=== PATIENT | male | born 1980 | race Two or more races ===

== ENCOUNTER 2018-11-21 17:44 | Emergency (ER) | payer BC, OTHER ==
[2018-11-21] MEDS ORDERED: Proparacaine 0.5% Ophth Soln 15 ML Bottle EYERT ONE (18:02)
[2018-11-21] MEDS ORDERED: Tetracaine HCl/PF 0.5% 4 ML Bottle ONE (18:03)
[2018-11-21] MEDS ORDERED: Tetracaine HCl/PF 0.5% 4 ML Bottle EYERT ONE (18:04)
--- NOTE | 2018-11-21 18:15 | EDM.PDOC ---
ED HPI GENERAL MEDICAL PROBLEM - General Chief Complaint: Eye Problems Stated Complaint: RIGHT EYE PAIN Time Seen by Provider: 11/21/18 17:57 - History of Present Illness INITIAL COMMENTS - FREE TEXT/NARRATIVE: HISTORY AND PHYSICAL: History of present illness: Patient is a 38-year-old male presents with a concern of foreign body to his right eye status post 3 days. He denies other concern Review of systems: As per history of present illness and below otherwise all systems reviewed and negative. Past medical history: As per history of present illness and as reviewed below otherwise noncontributory. Surgical history: As per history of present illness and as reviewed below otherwise noncontributory. Social history: No reported history of drug or alcohol abuse. Family history: As per history of present illness and as reviewed below otherwise noncontributory. Physical exam: HEENT: Atraumatic, normocephalic, foreign body noted approximately 1 mm centrally in the right eye anterior chamber scleral some slight conjunctival injection lid eversion was negative foreign body pupils reactive, negative for conjunctival pallor or scleral icterus, mucous membranes moist, throat clear, neck supple, nontender, trachea midline. Lungs: Clear to auscultation, breath sounds equal bilaterally, chest nontender. Heart: S1S2, regular, negative for clicks, rubs, or JVD. Abdomen: Soft, nondistended, nontender. Negative for masses or hepatosplenomegaly. Negative for costovertebral tenderness. Pelvis: Stable nontender. Genitourinary: Deferred. Rectal: Deferred. Extremities: Atraumatic, negative for cords or calf pain. Neurovascular unremarkable. Neuro: Awake, alert, oriented. Cranial nerves II through XII unremarkable. Cerebellum unremarkable. Motor and sensory unremarkable throughout. Exam nonfocal. Diagnostics: None Therapeutics: Tetracaine ophthalmic drops Impression: #1 corneal foreign body right eye 3 days status post Definitive disposition and diagnosis as appropriate pending reevaluation and review of above. Right Eye Pain Score (Numeric/FACES): 8 - Related Data Allergies Allergy/AdvReac Type Severity Reaction Status Date / Time No Known Allergies Allergy Verified 11/21/18 17:56 Home Meds: Home Meds . [No Known Home Meds] 11/21/18 [History] Past Medical History Dermatologic History: Reports: Other (See Below) Other Dermatologic History: Tumor on left leg removed - Infectious Disease History Infectious Disease History: Reports: Chicken Pox - Past Surgical History Respiratory Surgical History: Reports: Other (See Below) Other Respiratory Surgeries/Procedures: Bilateral chest tube and surgical abrasions to lungs. Musculoskeletal Surgical History: Reports: Shoulder Surgery, Other (See Below) Other Musculoskeletal Surgeries/Procedures:: Right foot, right arm Social & Family History - Family History Family Medical History: Noncontributory - Tobacco Use Smoking Status *Q: Current Some Day Smoker Years of Tobacco use: 10 Packs/Tins Daily: 0.1 - Recreational Drug Use Recreational Drug Use: No ED ROS GENERAL - Review of Systems Review Of Systems: ROS reveals no pertinent complaints other than HPI. ED EXAM GENERAL W FULL EYE - Physical Exam Exam: See Below (See dictation) Course - Vital Signs Last Recorded V/S: Last Vital Signs Temp 36.6 C 11/21/18 18:04 Pulse 92 11/21/18 18:04 Resp 16 11/21/18 18:04 BP 131/77 11/21/18 18:04 Pulse Ox 95 11/21/18 18:04 - Orders/Labs/Meds Meds: Medications Discontinued Medications Generic Name Dose Route Start Last Admin Trade Name Shalini PRN Reason Stop Dose Admin Proparacaine HCl 1 ml 11/21/18 18:02 Proparacaine 0.5% Ophth Soln EYERT 11/21/18 18:03 ONETIME ONE Tetracaine HCl 1 ml 11/21/18 18:04 Tetracaine 0.5% Steri-Unit Kaci EYERT 11/21/18 18:05 ASDIRECTED ONE Tetracaine HCl Confirm 11/21/18 18:03 Tetracaine 0.5% Steri-Unit Kaci Administered 11/21/18 18:04 Dose 4 ml .ROUTE .STK-MED ONE Departure - Departure Time of Disposition: 18:15 Disposition: Home, Self-Care 01 Condition: Good Clinical Impression: Corneal foreign body with residual material - Discharge Information Referrals: PCP,None [Primary Care Provider] - Additional Instructions: The following information is given to patients seen in the emergency department who are being discharged to home. This information is to outline your options for follow-up care. We provide all patients seen in our emergency department with a follow-up referral. The need for follow-up, as well as the timing and circumstances, are variable depending upon the specifics of your emergency department visit. If you don't have a primary care physician on staff, we will provide you with a referral. We always advise you to contact your personal physician following an emergency department visit to inform them of the circumstance of the visit and for follow-up with them and/or the need for any referrals to a consulting specialist. The emergency department will also refer you to a specialist when appropriate. This referral assures that you have the opportunity for followup care with a specialist. All of these measure are taken in an effort to provide you with optimal care, which includes your followup. Under all circumstances we always encourage you to contact your private physician who remains a resource for coordinating your care. When calling for followup care, please make the office aware that this follow-up is from your recent emergency room visit. If for any reason you are refused follow-up, please contact the [facility] emergency department at and asked to speak to the emergency department charge nurse. [facility] [address] [place] [phone] Follow-up 7:30 AM tomorrow with eye clinic above return as needed as discussed
[2018-11-21 19:17] VITALS: BP 114/71
== END 2018-11-21 18:37 | disposition home or self-care (01) ==
LOC: MW.ED 17:44
DX: T15.01XA Foreign body in cornea, right eye, initial encounter (principal); F17.210 Nicotine dependence, cigarettes, uncomplicated; X58.XXXA Exposure to other specified factors, initial encounter
CPT/HCPCS: 99283

== ENCOUNTER 2019-09-05 13:49 | Emergency (ER) | payer BC ==
[2019-09-05] MEDS ORDERED: Sodium Chloride 0.9% 1,000 ML IV ONE (14:00)
[2019-09-05] MEDS ORDERED: Sodium Chloride 0.9% 2.5 ML Syringe FLUSH PRN (14:00)
[2019-09-05] MEDS ORDERED: Sodium Chloride 0.9% 10 ML Syringe FLUSH PRN (14:00)
--- NOTE | 2019-09-05 14:01 | EDM.PDOC ---
ED HPI GENERAL MEDICAL PROBLEM - General Chief Complaint: Cardiovascular Problem Stated Complaint: SHAKES,SWEATS Time Seen by Provider: 09/05/19 14:01 Source of Information: Reports: Patient History Limitations: Reports: No Limitations - History of Present Illness INITIAL COMMENTS - FREE TEXT/NARRATIVE: HISTORY AND PHYSICAL: History of present illness: Patient is a 38-year-old male presents to the ED with complaint of shortness of breath and dizziness. He states he woke up at 3am this morning feeling short of breath, shaky and cold sweats. He states he had a headache so he took some tylenol PM and went back to sleep. He work up again this morning and states his symptoms returned. He denies chest pain, abdominal pain, nausea, vomiting, diarrhea, cough, fevers. He states he has a mild headache now. He states he feels "panicky." He denies significant past medical or surgical history. Smokes 3 cigarettes per day x 3 days. Drinks 1-2 beers per night. Review of systems: As per history of present illness and below otherwise all systems reviewed and negative. Past medical history: As per history of present illness and as reviewed below otherwise noncontributory. Surgical history: As per history of present illness and as reviewed below otherwise noncontributory. Social history: No reported history of drug or alcohol abuse. Family history: As per history of present illness and as reviewed below otherwise noncontributory. Physical exam: General: Patient sitting comfortably in no acute distress and nontoxic appearing HEENT: Atraumatic, normocephalic, pupils reactive, negative for conjunctival pallor or scleral icterus, mucous membranes moist, throat clear, neck supple, nontender, trachea midline. No meningeal signs. Lungs: Clear to auscultation, breath sounds equal bilaterally, chest nontender. Heart: S1S2, regular, negative for clicks, rubs, or overt murmur. Abdomen: Soft, nondistended, nontender. Negative for masses or hepatosplenomegaly. Negative for costovertebral tenderness. No rigidity, rebound , guarding. Pelvis: Stable nontender. Genitourinary: Deferred. Rectal: Deferred. Extremities: Atraumatic, negative for cords or calf pain. Neurovascular unremarkable. Neuro: Awake, alert, oriented. Cranial nerves II through XII unremarkable. Cerebellum unremarkable. Motor and sensory unremarkable throughout. Exam nonfocal. Notes: Patient reports improvement in SOB and shakiness/dizziness. He is complaining of a headache 07/15, improved with Toradol. Diagnostics: CBC, CMP, troponin, EKG, CXR Therapeutics: 1L NS IV 30mg Toradol IV 40mEq potassium Prescriptions: Impression: Shortness of breath, headache Plan: Drink plenty of fluids and alternate tylenol and ibuprofen as needed Follow up with primary care provider Return to ED as needed as discussed Definitive disposition and diagnosis as appropriate pending reevaluation and review of above. - Related Data Allergies Allergy/AdvReac Type Severity Reaction Status Date / Time No Known Allergies Allergy Verified 09/05/19 13:57 Home Meds: Home Meds . [No Known Home Meds] 11/21/18 [History] Past Medical History Dermatologic History: Reports: Other (See Below) Other Dermatologic History: Tumor on left leg removed - Infectious Disease History Infectious Disease History: Reports: Chicken Pox - Past Surgical History Respiratory Surgical History: Reports: Other (See Below) Other Respiratory Surgeries/Procedures: Bilateral chest tube and surgical abrasions to lungs. Musculoskeletal Surgical History: Reports: Shoulder Surgery, Other (See Below) Other Musculoskeletal Surgeries/Procedures:: Right foot, right arm Social & Family History - Family History Family Medical History: Noncontributory ED ROS GENERAL - Review of Systems Review Of Systems: ROS reveals no pertinent complaints other than HPI. ED EXAM, GENERAL - Physical Exam Exam: See Below (see dictation) Course - Vital Signs Last Recorded V/S: Last Vital Signs Temp 96.9 F 09/05/19 13:57 Pulse 66 09/05/19 14:08 Resp 14 09/05/19 14:08 BP 155/79 H 09/05/19 14:08 Pulse Ox 94 L 09/05/19 14:08 - Orders/Labs/Meds Orders: Active Orders 24 hr Category Date Time Status Cardiac Monitoring [RC] . DIRECTED Care 09/05/19 14:00 Active EKG Documentation Completion [RC] STAT Care 09/05/19 14:00 Active Pulse Oximetry [RC] ASDIRECTED Care 09/05/19 14:00 Active Sodium Chloride 0.9% [Saline Flush] Med 09/05/19 14:00 Active 10 ml FLUSH ASDIRECTED PRN Sodium Chloride 0.9% [Saline Flush] Med 09/05/19 14:00 Active 2.5 ml FLUSH ASDIRECTED PRN Saline Lock Insert [OM.PC] Stat Oth 09/05/19 14:00 Ordered Medication Orders Sodium Chloride (Saline Flush) 10 ml FLUSH ASDIRECTED PRN PRN Reason: Keep Vein Open Last Admin: 09/05/19 14:11 Dose: 10 ml Sodium Chloride (Saline Flush) 2.5 ml FLUSH ASDIRECTED PRN PRN Reason: Keep Vein Open Last Admin: 09/05/19 14:11 Dose: 2.5 ml Labs: Laboratory Tests 09/05/19 09/05/19 Range/Units 14:00 14:00 WBC 13.13 H (4.0-11.0) K/uL RBC 5.28 (4.50-5.90) M/uL Hgb 16.8 (13.0-17.0) g/dL Hct 46.8 (38.0-50.0) % MCV 88.6 (80.0-98.0) fL MCH 31.8 (27.0-32.0) pg MCHC 35.9 (31.0-37.0) g/dL RDW Std Deviation 42.5 (28.0-62.0) fl RDW Coeff of [place] 13 (11.0-15.0) % Plt Count 266 (150-400) K/uL MPV 9.50 (7.40-12.00) fL Neut % (Auto) 66.9 (48.0-80.0) % Lymph % (Auto) 26.2 (16.0-40.0) % [place] % (Auto) 6.6 (0.0-15.0) % Eos % (Auto) 0.1 (0.0-7.0) % Baso % (Auto) 0.2 (0.0-1.5) % Neut # (Auto) 8.8 H (1.4-5.7) K/uL Lymph # (Auto) 3.4 H (0.6-2.4) K/uL [place] # (Auto) 0.9 H (0.0-0.8) K/uL Eos # (Auto) 0.0 (0.0-0.7) K/uL Baso # (Auto) 0.0 (0.0-0.1) K/uL Nucleated RBC % 0.0 /100WBC Nucleated RBCs # 0 K/uL Sodium 141 (136-148) mmol/L Potassium 3.1 L (3.5-5.1) mmol/L Chloride 105 (98-107) mmol/L Carbon Dioxide 20.3 L (21.0-32.0) mmol/L BUN 11 (7.0-18.0) mg/dL Creatinine 1.1 (0.8-1.3) mg/dL Est Cr Clr Drug Dosing 92.84 mL/min Estimated GFR (MDRD) > 60.0 ml/min Glucose 180 H (74-106) mg/dL Calcium 9.1 (8.5-10.1) mg/dL Total Bilirubin 0.5 (0.2-1.0) mg/dL AST 47 H (15-37) IU/L ALT 134 H (14-63) IU/L Alkaline Phosphatase 89 (46-116) U/L Troponin I < 0.050 (0.000-0.056) ng/mL Total Protein 8.0 (6.4-8.2) g/dL Albumin 4.1 (3.4-5.0) g/dL Globulin 3.9 (2.6-4.0) g/dL Albumin/Globulin Ratio 1.1 (0.9-1.6) Meds: Medications Generic Name Dose Route Start Last Admin Trade Name Shalini PRN Reason Stop Dose Admin Sodium Chloride 10 ml 09/05/19 14:00 09/05/19 14:11 Saline Flush FLUSH 10 ml ASDIRECTED PRN Administration Keep Vein Open Sodium Chloride 2.5 ml 09/05/19 14:00 09/05/19 14:11 Saline Flush FLUSH 2.5 ml ASDIRECTED PRN Administration Keep Vein Open Discontinued Medications Generic Name Dose Route Start Last Admin Trade Name Freq PRN Reason Stop Dose Admin Sodium Chloride 1,000 mls @ 999 mls/hr 09/05/19 14:00 09/05/19 14:11 Normal Saline IV 09/05/19 15:00 999 mls/hr BOLUS ONE Administration Ketorolac Tromethamine 30 mg 09/05/19 14:48 09/05/19 15:04 Toradol IVPUSH 09/05/19 14:49 30 mg ONETIME ONE Administration Potassium Chloride 40 meq 09/05/19 14:47 09/05/19 15:04 Klor-Con M20 PO 09/05/19 14:48 40 meq ONETIME ONE Administration Departure - Departure Time of Disposition: 15:23 Disposition: Home, Self-Care 01 Condition: Good Clinical Impression: Headache, Shortness of breath Referrals: PCP,None [Primary Care Provider] - Forms: ED Department Discharge Additional Instructions: The following information is given to patients seen in the emergency department who are being discharged to home. This information is to outline your options for follow-up care. We provide all patients seen in our emergency department with a follow-up referral. The need for follow-up, as well as the timing and circumstances, are variable depending upon the specifics of your emergency department visit. If you don't have a primary care physician on staff, we will provide you with a referral. We always advise you to contact your personal physician following an emergency department visit to inform them of the circumstance of the visit and for follow-up with them and/or the need for any referrals to a consulting specialist. The emergency department will also refer you to a specialist when appropriate. This referral assures that you have the opportunity for follow-up care with a specialist. All of these measure are taken in an effort to provide you with optimal care, which includes your follow-up. Under all circumstances we always encourage you to contact your private physician who remains a resource for coordinating your care. When calling for follow-up care, please make the office aware that this follow-up is from your recent emergency room visit. If for any reason you are refused follow-up, please contact the [facility] Emergency Department at and asked to speak to the emergency department charge nurse. [facility] [address] [place] [id number] [id number] Drink plenty of fluids and alternate tylenol and ibuprofen as needed Follow up with primary care provider Return to ED as needed as discussed - My Orders Last 24 Hours: My Active Orders 09/05/19 14:00 Cardiac Monitoring [RC] . DIRECTED EKG Documentation Completion [RC] STAT Pulse Oximetry [RC] ASDIRECTED Sodium Chloride 0.9% [Saline Flush] 10 ml FLUSH ASDIRECTED PRN Sodium Chloride 0.9% [Saline Flush] 2.5 ml FLUSH ASDIRECTED PRN Saline Lock Insert [OM.PC] Stat - Assessment/Plan Last 24 Hours: My Active Orders 09/05/19 14:00 Cardiac Monitoring [RC] . DIRECTED EKG Documentation Completion [RC] STAT Pulse Oximetry [RC] ASDIRECTED Sodium Chloride 0.9% [Saline Flush] 10 ml FLUSH ASDIRECTED PRN Sodium Chloride 0.9% [Saline Flush] 2.5 ml FLUSH ASDIRECTED PRN Saline Lock Insert [OM.PC] Stat
[2019-09-05 14:08] VITALS: BP 155/79; PULSE 66
--- NOTE | 2019-09-05 14:36 | CR ---
Chest: Portable view of the chest was obtained. Comparison: Prior chest x-ray of 07/25/04/19. Heart size and mediastinum are within normal limits for portable technique. Lungs are clear with no acute parenchymal change. Bony structures are grossly intact. Impression: Nothing acute is seen on portable chest x-ray. Diagnostic code #1 MTDD
[2019-09-05 14:40] LABS: BLOOD UREA NITROGEN,BUN 11 mg/dL (7.0-18.0); CARBON DIOXIDE,CO2 20.3 mmol/L (21.0-32.0); CHLORIDE,CL 105 mmol/L (98-107); GLUCOSE RANDOM 180 mg/dL (74-106); POTASSIUM,K 3.1 mmol/L (3.5-5.1); SODIUM,NA 141 mmol/L (136-148)
[2019-09-05] MEDS ORDERED: Potassium Chloride 20 MEQ Tab.ER PO ONE (14:47)
[2019-09-05] MEDS ORDERED: Ketorolac 30 MG/ML SDV IVPUSH ONE (14:48)
== END 2019-09-05 15:40 | disposition home or self-care (01) ==
LOC: MW.ED 13:49
DX: R51 Headache (principal); R06.02 Shortness of breath
CPT/HCPCS: 36415; 71045; 80053; 84484; 85025; 93005; 96374; 99285; A9270; J1885; J7040

== ENCOUNTER 2019-09-07 22:15 | Emergency (ER) | payer BC ==
[2019-09-07] MEDS ORDERED: Sodium Chloride 0.9% 10 ML Syringe FLUSH PRN (22:37)
[2019-09-07] MEDS ORDERED: Sodium Chloride 0.9% 1,000 ML IV ONE ×2 (22:37→23:45)
[2019-09-07] MEDS ORDERED: Sodium Chloride 0.9% 2.5 ML Syringe FLUSH PRN (22:37)
--- NOTE | 2019-09-07 22:43 | EDM.PDOC ---
ED HPI GENERAL MEDICAL PROBLEM - General Chief Complaint: Neurological Problem Stated Complaint: HEADACHE AND CONFUSED Time Seen by Provider: 09/07/19 22:24 - History of Present Illness INITIAL COMMENTS - FREE TEXT/NARRATIVE: HISTORY AND PHYSICAL: History of present illness: The patient is a 38 y/o male who was seen here 2 days ago with complaints of shortness of breath dizziness shakiness and headache sweats and malaise and was worked up with labs and a chest x-ray all of which were negative; the patient presents tonight saying that he is not feeling any better and he still has her mobilized weakness, low energy a diffuse headache and episodic shortness of breath without cough and not eating and drinking very much today. He denies abdominal pain nausea vomiting or diarrhea and has no chest pain or shortness of breath. He has no known documented temperature at home and has not felt hot or chilly. He has no neck or back pain no flank pain and no focal weakness numbness or tingling and says that he does has a generalized weakness and not feeling himself and low energy. The patient admits to nursing and it is present in his chart from 2 days ago that he is a daily drinker. He told his primary care nurse this evening that he drinks at least 2 drinks per day. The patient denies any history of head or neck trauma and when I asked him specifically about his headache he is very vague about describing where it is and how it feels but it is more in the back diffuse. He says he has been taking medication for it but does not feel any better and he is unclear what he has been taking. He says he was prescribed something in the past and he discontinued taking that. He has not had any recent falls that he is aware of or trauma. He has no significant past medical history that he admits to such as diabetes hypertension or neurologic issues. Per the report from the prior ED visit 2 days ago the patient did complain of a diffuse headache which was relieved with Toradol The patient never stated to me that he felt confused or disoriented he just said that he felt like he had this overall generalized weakness fatigue and malaise. He answers questions quickly and easily about his medical history without distress. The patient did tell us that he had a history of empyema in the past that was treated. Review of systems: As per history of present illness and below otherwise all systems reviewed and negative. Past medical history: As per history of present illness and as reviewed below otherwise noncontributory. Surgical history: As per history of present illness and as reviewed below otherwise noncontributory. Social history: No reported history of drug or alcohol abuse. Family history: As per history of present illness and as reviewed below otherwise noncontributory. Physical exam: General: Well-developed well-nourished man who speaks clearly and answers questions but prefers to lay his eyes closed and he can sit up and move in bed without assistance. He is not breathless and his vital signs are noted by me HEENT: Atraumatic, normocephalic, pupils reactive, negative for conjunctival pallor or scleral icterus, mucous membranes tacky, throat clear, neck supple, nontender, trachea midline. He has no cervical adenopathy or nuchal rigidity no sinus tenderness and I cannot appreciate or reproduce the pain of his headache on palpation except a little in the diffuse parietal occipital areas bilaterally. There are no scalp defects or deformities. Lungs: Clear to auscultation, breath sounds equal bilaterally, chest nontender. No worker breathing wheezing or stridor Heart: S1S2, regular, negative for clicks, rubs, or JVD. Abdomen: Soft, nondistended, nontender. Negative for masses or hepatosplenomegaly. Negative for costovertebral tenderness. Pelvis: Stable nontender. Genitourinary: Deferred. Rectal: Deferred. Extremities: Atraumatic, negative for cords or calf pain. Neurovascular unremarkable. Full range of motion without defects or deficits and no edema Neuro: Awake, alert, oriented. Cranial nerves II through XII unremarkable. Cerebellum unremarkable. Motor and sensory unremarkable throughout. Exam nonfocal. 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/5 as is all extremity testing that I performed, with it all being equal bilaterally and 5/5 without any deficits Back: There are no midline step-offs in his defects of the cervical thoracic or lumbar spine no posterior rib or CVA tenderness and no soft tissue injuries Diagnostics: EKG CBC CMP alcohol level troponin TSH lactic acid UA with reflex UDS CT scan of the head carbon monoxide level chest x-ray magnesium level PT/INR Therapeutics: IV O2 monitor IV fluids When the patient got up to go to the bathroom he told the nurse that he was having more of bifrontal right sided headache where as on my evaluation he was saying it was more in the back of his head bilaterally. He was also very unsteady with his gait. The patient told the triage nurse that he does not use any recreational drugs but after I received his drug screen I did question him about the methamphetamine and he said he did use several days ago. It is maintaining his airway and I am currently in the process of arranging transfer via flight. 0010: [facility] contacted me with the test results of the CT scan of the head. 0022: Repeat blood pressure was 162/81 and the patient is drowsy but answering questions and on his cell phone. He is aware of what's going on and my concerns and the need for transfer. Dr. Redd at [facility] in [place] was contacted that the patient for transfer and flight team was alerted and will be in route to take the patient. All films will be transferred to the receiving hospital. At the end of this dictation the only lab value have not seen is the PT/INR which I will follow-up. At this point the patient is maintaining his airway and I will not give him anything for his blood pressure normalized electively intubate him as long as he can maintain his airway and he is awake and alert. I will rediscuss this with the flight team. Impression: Basilar subarachnoid hemorrhage, recent history of methamphetamine use, leukocytosis etiology unclear Definitive disposition and diagnosis as appropriate pending reevaluation and review of above. headache Pain Score (Numeric/FACES): 10 - Related Data Allergies Allergy/AdvReac Type Severity Reaction Status Date / Time No Known Allergies Allergy Verified 09/07/19 22:26 Home Meds: Home Meds . [No Known Home Meds] 11/21/18 [History] Past Medical History Respiratory History: Reports: Other (See Below) Other Respiratory History: pleural emphayema Dermatologic History: Reports: Other (See Below) Other Dermatologic History: Tumor on left leg removed - Infectious Disease History Infectious Disease History: Reports: Chicken Pox - Past Surgical History Respiratory Surgical History: Reports: Other (See Below) Other Respiratory Surgeries/Procedures: Bilateral chest tube and surgical abrasions to lungs. Musculoskeletal Surgical History: Reports: Shoulder Surgery, Other (See Below) Other Musculoskeletal Surgeries/Procedures:: Right foot, right arm Social & Family History - Family History Family Medical History: Noncontributory - Tobacco Use Smoking Status *Q: Current Every Day Smoker Years of Tobacco use: 5 Packs/Tins Daily: 0.5 - Caffeine Use Caffeine Use: Reports: Coffee - Alcohol Use Days Per Week of Alcohol Use: 7 Number of Drinks Per Day: 3 Total Drinks Per Week: 21 - Recreational Drug Use Recreational Drug Use: No ED ROS GENERAL - Review of Systems Review Of Systems: ROS reveals no pertinent complaints other than HPI. ED EXAM, GENERAL - Physical Exam Exam: See Below (See dictation) Course - Vital Signs Last Recorded V/S: Last Vital Signs Temp 36.1 C 09/07/19 22:20 Pulse 67 09/08/19 00:00 Resp 16 09/08/19 00:00 BP 162/81 H 09/08/19 00:00 Pulse Ox 98 09/08/19 00:00 - Orders/Labs/Meds Orders: Active Orders 24 hr Category Date Time Status Blood Glucose Check, Bedside [RC] ONETIME Care 09/07/19 22:36 Active Cardiac Monitoring [RC] . DIRECTED Care 09/07/19 22:36 Active EKG Documentation Completion [RC] STAT Care 09/07/19 22:36 Active Oxygen Therapy, ED [RC] ASDIRECTED Care 09/07/19 22:36 Active Pulse Oximetry [RC] ASDIRECTED Care 09/07/19 22:36 Active INR,PT,PROTHROMBIN TIME [COAG] Stat Lab 09/08/19 00:24 Received Sodium Chloride 0.9% [Normal Saline] 1,000 ml Med 09/07/19 23:45 Active IV STAT Sodium Chloride 0.9% [Saline Flush] Med 09/07/19 22:37 Active 10 ml FLUSH ASDIRECTED PRN Sodium Chloride 0.9% [Saline Flush] Med 09/07/19 22:37 Active 2.5 ml FLUSH ASDIRECTED PRN Saline Lock Insert [OM.PC] Stat Oth 09/07/19 22:36 Ordered Medication Orders Sodium Chloride (Normal Saline) 1,000 mls @ 999 mls/hr IV STAT ONE Stop: 09/08/19 00:45 Sodium Chloride (Saline Flush) 10 ml FLUSH ASDIRECTED PRN PRN Reason: Keep Vein Open Sodium Chloride (Saline Flush) 2.5 ml FLUSH ASDIRECTED PRN PRN Reason: Keep Vein Open Labs: Laboratory Tests 09/07/19 09/07/19 09/07/19 Range/Units 22:30 22:30 22:30 WBC 21.56 H (4.0-11.0) K/uL RBC 5.45 (4.50-5.90) M/uL Hgb 17.4 H (13.0-17.0) g/dL Hct 48.9 (38.0-50.0) % MCV 89.7 (80.0-98.0) fL MCH 31.9 (27.0-32.0) pg MCHC 35.6 (31.0-37.0) g/dL RDW Std Deviation 42.7 (28.0-62.0) fl RDW Coeff of Santiago 13 (11.0-15.0) % Plt Count 267 (150-400) K/uL MPV 9.50 (7.40-12.00) fL Neut % (Auto) 87.7 H (48.0-80.0) % Lymph % (Auto) 6.6 L (16.0-40.0) % [place] % (Auto) 5.6 (0.0-15.0) % Eos % (Auto) 0.0 (0.0-7.0) % Baso % (Auto) 0.1 (0.0-1.5) % Neut # (Auto) 18.9 H (1.4-5.7) K/uL Lymph # (Auto) 1.4 (0.6-2.4) K/uL Nicol[place] # (Auto) 1.2 H (0.0-0.8) K/uL Eos # (Auto) 0.0 (0.0-0.7) K/uL Baso # (Auto) 0.0 (0.0-0.1) K/uL Nucleated RBC % 0.0 /100WBC Nucleated RBCs # 0 K/uL ABG Carboxyhemoglobin 1.7 (0-15) % Lactate 2.1 H (0.20-2.00) mmol/L Sodium 137 (136-148) mmol/L Potassium 3.5 (3.5-5.1) mmol/L Chloride 97 L (98-107) mmol/L Carbon Dioxide 25.5 (21.0-32.0) mmol/L BUN 13 (7.0-18.0) mg/dL Creatinine 0.9 (0.8-1.3) mg/dL Est Cr Clr Drug Dosing 109.78 mL/min Estimated GFR (MDRD) > 60.0 ml/min Glucose 141 H (74-106) mg/dL Calcium 8.9 (8.5-10.1) mg/dL Magnesium (1.8-2.4) mg/dL Total Bilirubin 1.0 (0.2-1.0) mg/dL AST 43 H (15-37) IU/L ALT 103 H (14-63) IU/L Alkaline Phosphatase 81 (46-116) U/L Troponin I < 0.050 (0.000-0.056) ng/mL Total Protein 8.6 H (6.4-8.2) g/dL Albumin 4.0 (3.4-5.0) g/dL Globulin 4.6 H (2.6-4.0) g/dL Albumin/Globulin Ratio 0.9 (0.9-1.6) TSH 3rd Generation 0.26 L (0.36-3.74) uIU/mL Urine Color Urine Appearance Urine pH (5.0-8.0) Ur Specific [place] (1.001-1.035) Urine Protein (NEGATIVE) mg/dL Urine Glucose (UA) (NEGATIVE) mg/dL Urine Ketones (NEGATIVE) mg/dL Urine Occult Blood (NEGATIVE) Urine Nitrite (NEGATIVE) Urine Bilirubin (NEGATIVE) Urine Urobilinogen (<2.0) EU/dL Ur Leukocyte Esterase (NEGATIVE) Urine RBC (0-2/HPF) Urine WBC (0-5/HPF) Ur Epithelial Cells (NONE-FEW) Urine Bacteria (NEGATIVE) Urine Opiates Screen (NEGATIVE) Ur Oxycodone Screen (NEGATIVE) Urine Methadone Screen (NEGATIVE) Ur Barbiturates Screen (NEGATIVE) Ur Phencyclidine Scrn (NEGATIVE) Ur Amphetamine Screen (NEGATIVE) U Methamphetamines Scrn (NEGATIVE) U Benzodiazepines Scrn (NEGATIVE) U Cocaine Metab Screen (NEGATIVE) U Marijuana (THC) Screen (NEGATIVE) Ethyl Alcohol < 3.0 mg/dL 09/07/19 09/07/19 09/07/19 Range/Units 22:30 23:45 23:45 WBC (4.0-11.0) K/uL RBC (4.50-5.90) M/uL Hgb (13.0-17.0) g/dL Hct (38.0-50.0) % MCV (80.0-98.0) fL MCH (27.0-32.0) pg MCHC (31.0-37.0) g/dL RDW Std Deviation (28.0-62.0) fl RDW Coeff of Santiago (11.0-15.0) % Plt Count (150-400) K/uL MPV (7.40-12.00) fL Neut % (Auto) (48.0-80.0) % Lymph % (Auto) (16.0-40.0) % Nicol[place] % (Auto) (0.0-15.0) % Eos % (Auto) (0.0-7.0) % Baso % (Auto) (0.0-1.5) % Neut # (Auto) (1.4-5.7) K/uL Lymph # (Auto) (0.6-2.4) K/uL [place] # (Auto) (0.0-0.8) K/uL Eos # (Auto) (0.0-0.7) K/uL Baso # (Auto) (0.0-0.1) K/uL Nucleated RBC % /100WBC Nucleated RBCs # K/uL ABG Carboxyhemoglobin (0-15) % Lactate (0.20-2.00) mmol/L Sodium (136-148) mmol/L Potassium (3.5-5.1) mmol/L Chloride (98-107) mmol/L Carbon Dioxide (21.0-32.0) mmol/L BUN (7.0-18.0) mg/dL Creatinine (0.8-1.3) mg/dL Est Cr Clr Drug Dosing mL/min Estimated GFR (MDRD) ml/min Glucose (74-106) mg/dL Calcium (8.5-10.1) mg/dL Magnesium 1.8 (1.8-2.4) mg/dL Total Bilirubin (0.2-1.0) mg/dL AST (15-37) IU/L ALT (14-63) IU/L Alkaline Phosphatase (46-116) U/L Troponin I (0.000-0.056) ng/mL Total Protein (6.4-8.2) g/dL Albumin (3.4-5.0) g/dL Globulin (2.6-4.0) g/dL Albumin/Globulin Ratio (0.9-1.6) TSH 3rd Generation (0.36-3.74) uIU/mL Urine Color YELLOW Urine Appearance SLT CLOUDY Urine pH 7.0 (5.0-8.0) Ur Specific [place] 1.015 (1.001-1.035) Urine Protein 30 H (NEGATIVE) mg/dL Urine Glucose (UA) >=1000 (NEGATIVE) mg/dL Urine Ketones TRACE H (NEGATIVE) mg/dL Urine Occult Blood MODERATE H (NEGATIVE) Urine Nitrite NEGATIVE (NEGATIVE) Urine Bilirubin NEGATIVE (NEGATIVE) Urine Urobilinogen 2.0 H (<2.0) EU/dL Ur Leukocyte Esterase NEGATIVE (NEGATIVE) Urine RBC 2-4 (0-2/HPF) Urine WBC 12-15 (0-5/HPF) Ur Epithelial Cells MODERATE (NONE-FEW) Urine Bacteria FEW (NEGATIVE) Urine Opiates Screen NEGATIVE (NEGATIVE) Ur Oxycodone Screen NEGATIVE (NEGATIVE) Urine Methadone Screen NEGATIVE (NEGATIVE) Ur Barbiturates Screen NEGATIVE (NEGATIVE) Ur Phencyclidine Scrn NEGATIVE (NEGATIVE) Ur Amphetamine Screen POSITIVE (NEGATIVE) U Methamphetamines Scrn POSITIVE (NEGATIVE) U Benzodiazepines Scrn NEGATIVE (NEGATIVE) U Cocaine Metab Screen NEGATIVE (NEGATIVE) U Marijuana (THC) Screen NEGATIVE (NEGATIVE) Ethyl Alcohol mg/dL Meds: Medications Generic Name Dose Route Start Last Admin Trade Name Freq PRN Reason Stop Dose Admin Sodium Chloride 1,000 mls @ 999 mls/hr 09/07/19 23:45 Normal Saline IV 09/08/19 00:45 STAT ONE Sodium Chloride 10 ml 09/07/19 22:37 Saline Flush FLUSH ASDIRECTED PRN Keep Vein Open Sodium Chloride 2.5 ml 09/07/19 22:37 Saline Flush FLUSH ASDIRECTED PRN Keep Vein Open Discontinued Medications Generic Name Dose Route Start Last Admin Trade Name Freq PRN Reason Stop Dose Admin Sodium Chloride 1,000 mls @ 999 mls/hr 09/07/19 22:37 09/07/19 22:49 Normal Saline IV 09/07/19 23:37 999 mls/hr STAT ONE Administration Departure - Departure Time of Disposition: 00:29 Disposition: DC/Tfer to Acute Hospital 02 Condition: Fair Clinical Impression: Subarachnoid hemorrhage, Methamphetamine use Leukocytosis Qualifiers: Leukocytosis type: unspecified Qualified Code(s): D72.829 - Elevated white blood cell count, unspecified - Discharge Information Referrals: PCP,None [Primary Care Provider] - Forms: ED Department Discharge - My Orders Last 24 Hours: My Active Orders 09/07/19 22:36 Blood Glucose Check, Bedside [RC] ONETIME Cardiac Monitoring [RC] . DIRECTED EKG Documentation Completion [RC] STAT Oxygen Therapy, ED [RC] ASDIRECTED Pulse Oximetry [RC] ASDIRECTED Saline Lock Insert [OM.PC] Stat 09/07/19 22:37 Sodium Chloride 0.9% [Saline Flush] 10 ml FLUSH ASDIRECTED PRN Sodium Chloride 0.9% [Saline Flush] 2.5 ml FLUSH ASDIRECTED PRN 09/07/19 23:45 Sodium Chloride 0.9% [Normal Saline] 1,000 ml IV STAT 09/08/19 00:24 INR,PT,PROTHROMBIN TIME [COAG] Stat - Assessment/Plan Last 24 Hours: My Active Orders 09/07/19 22:36 Blood Glucose Check, Bedside [RC] ONETIME Cardiac Monitoring [RC] . DIRECTED EKG Documentation Completion [RC] STAT Oxygen Therapy, ED [RC] ASDIRECTED Pulse Oximetry [RC] ASDIRECTED Saline Lock Insert [OM.PC] Stat 09/07/19 22:37 Sodium Chloride 0.9% [Saline Flush] 10 ml FLUSH ASDIRECTED PRN Sodium Chloride 0.9% [Saline Flush] 2.5 ml FLUSH ASDIRECTED PRN 09/07/19 23:45 Sodium Chloride 0.9% [Normal Saline] 1,000 ml IV STAT 09/08/19 00:24 INR,PT,PROTHROMBIN TIME [COAG] Stat
--- NOTE | 2019-09-07 23:30 | CR ---
INDICATION: Pt w/cp, dyspnea. TECHNIQUE: Chest 1 view. COMPARISON: 09/05/19 FINDINGS: Cardiovascular and mediastinum: Heart size and vasculature are normal in caliber and appearance. Mediastinum is within normal limits. Lungs and pleural space: Lungs are clear. No sign of infiltrate or mass. No sign of pleural effusion. No pneumothorax. Bones and soft tissues: No significant findings. IMPRESSION: Unremarkable chest. Dictated by: Alexey Wolff MD @ 09/07/2019 23:30:08 (Electronically Signed)
[2019-09-07 23:40] LABS: BLOOD UREA NITROGEN,BUN 13 mg/dL (7.0-18.0); CARBON DIOXIDE,CO2 25.5 mmol/L (21.0-32.0); CHLORIDE,CL 97 mmol/L (98-107); GLUCOSE RANDOM 141 mg/dL (74-106); POTASSIUM,K 3.5 mmol/L (3.5-5.1); SODIUM,NA 137 mmol/L (136-148)
--- NOTE | 2019-09-08 00:16 | CT ---
INDICATION: Headache TECHNIQUE: CT head without contrast. COMPARISON: None available FINDINGS: There is subarachnoid hemorrhage in the basilar cisterns and anterior to the brainstem, apparently exerting mass effect on the medulla. There is mild dilatation of the lateral and 3rd ventricles with partial effacement of sulci and the sylvian fissures. Small amount of subarachnoid hemorrhage is seen near the vertex. There is a small density in the lateral aspect of the right cerebellum on image 18 of series 201 and image 49 of series 203 which could represent small blood products. There is an ovoid density in the left occipital horn on image 30 and a density within the 4th ventricle on image 21 which could be related to choroid plexus or intraventricular blood products. Mild hypodensity adjacent to the frontal horns could represent mild evolving transependymal flow of CSF. There is no loss of gilman-white differentiation. No acute calvarial fracture is seen. There are small maxillary sinus mucosal retention cysts or polyps. The mastoid air cells are clear. The visualized orbits are within normal limits. IMPRESSION: Basilar subarachnoid hemorrhage, apparently posteriorly displacing the medulla, with suspected evolving obstructive hydrocephalus. Small subarachnoid hemorrhage near the vertex. Small intraventricular blood products are not excluded. The findings were discussed with Dr. Hernandez, by phone, on 09/08/2019 at 12:05 a.m.. Dictated by Nathan Salas MD @ 09/08/2019 12:14:14 AM Please note that all CT scans at this facility use dose modulation, iterative reconstruction, and/or weight-based dosing when appropriate to reduce radiation dose to as low as reasonably achievable. Dictated by: Nathan Salas MD @ 09/08/2019 00:14:41 (Electronically Signed)
[2019-09-08 00:18] VITALS: BP 162/81; PULSE 67
[2019-09-08] MEDS ORDERED: cefTRIAXone 1 GM in Premix Bag 1 BAG IV ONE (00:49)
[2019-09-08] MEDS ORDERED: fentaNYL 100 MCG/2 ML SDV ONE (00:49)
[2019-09-08] MEDS ORDERED: fentaNYL 50 MCG/ML SDV IVPUSH ONE (00:50)
--- NOTE | 2019-09-08 00:58 | PCM.SN ---
- Free Text/Narrative Note: Called to Er for evaluation and airway management and possible intubation on patient before being transported to [place] for further care. ER MD and flight team feel confident that patient and crew canmaintain airway without ETT placement at this time.12:30-01:30
== END 2019-09-08 00:48 ==
LOC: MW.ED 22:15
DX: I60.4 Nontraumatic subarachnoid hemorrhage from basilar artery (principal); R40.2410 Glasgow coma scale score 13-15, unspecified time; F15.90 Other stimulant use, unspecified, uncomplicated; D72.829 Elevated white blood cell count, unspecified; F17.210 Nicotine dependence, cigarettes, uncomplicated
CPT/HCPCS: 36415; 70450; 71045; 80053; 80305; 80320; 81001; 82375; 83605; 83735; 84443; 84484; 85025; 85610; 93005; 96360; 96361; 99291; J0696; J3010; J7040; G0480